=== PATIENT | male | born 1990 | race Caucasian/White ===

== ENCOUNTER 2024-03-18 13:47 | Emergency (ER) | payer SELFPAY ==
[2024-03-18 13:53] VITALS: BP 142/74; PULSE 69; RESP 20; TEMP 36.9; O2SAT 99
--- NOTE | 2024-03-18 14:28 | ED.URI ---
HPI - URI/Sore Throat General Chief Complaint: Upper Respiratory Infection Stated Complaint: Congestion/Diarrhea Time Seen by Provider: 03/18/24 14:29 Source: patient, RN notes reviewed and old records reviewed Mode of arrival: ambulatory Limitations: no limitations History of Present Illness HPI Narrative: 33-year-old male presents to Express Care with complaints of nausea vomiting and diarrhea which started yesterday. Patient states that had to leave work early yesterday due to illness. Patient reports that his congestion and sore throat just started today.Patient reports that he needs work note because he had to miss work due to illness. Patient denies any abdominal pain, no fevers chills or sweats. MD elicited complaint: sore throat, rhinorrhea, nasal congestion and other (nausea vomiting and diarrhea.) Onset (ago): day(s) (2) Severity: moderate Able to tolerate fluids by mouth: Yes Treatments prior to arrival: none Related Data Allergies Allergy/AdvReac Type Severity Reaction Status Date / Time No Known Allergies Allergy Verified 03/18/24 14:04 Review of Systems Review of Systems: CONSTITUTIONAL: Denies malaise, chills, sweats, or fever. EYES: Denies visual changes, redness, or discharge. ENT: Reports rhinorrhea, congestion, sinus pain, no otalgia and positive for sore throat. CARDIOVASCULAR: Denies chest pain, palpitations, or edema. RESPIRATORY: Reports cough.? Denies dyspnea. GASTROINTESTINAL: Denies abdominal pain,positive nausea, vomiting, diarrhea SKIN: Denies rash or itching. MUSCULOSKELETAL: Denies myalgia. NEUROLOGIC: Denies headache. All systems reviewed & are unremarkable except as noted in HPI and below PMFSH Surgical History Surgical History (Updated 03/20/24 @ 10:40 by Negar Nichole NP) H/O left inguinal hernia repair Social History Social History (Updated 03/20/24 @ 10:40 by Negar Nichole NP) Smoking status: Current every day smoker Tobacco type: e-cigarettes/vaping Alcohol intake: unknown Substance use: current Substance use type: marijuana Gender identity (if verbalized by the patient): Male Comments At time of signature, agree with nursing past medical, surgical, social and family history. There is no relevant family history pertinent to the presenting complaint Exam Narrative: GENERAL: Well-appearing, well-nourished, and in no acute distress. HEAD: Normocephalic EYES: PERRLA, conjunctivae clear ENT: Nares clear, turbinates edematous and erythematous, clear discharge. Mucous membranes moist. TM pearly parsons with dull light reflex bilaterally; no tragal tenderness. Oropharynx erythematous without lesions. Tonsils red enlarged and without exudate, no drooling, no hoarseness, no trismus, uvula midline.post nasal drainage noted NECK: Supple. No lymphadenopathy CHEST: Clear to auscultation, breath sounds equal. No wheezing, rhonchi, rales, or stridor. No respiratory distress, speaks in full sentences.no cough noted SAO2 99% on room air HEART: Regular rate and rhythm. No murmur heard. SKIN: Warm, dry, no rash. NEURO: Alert and oriented x3. PSYCH: Normal mood and affect Course Course Emergency Course: Patient is aware of diagnosis, understands and agrees to treatment plan.? Anticipatory guidance given.? Patient agrees to follow-up as directed and is aware of reasons to seek care at the emergency department. Portions of this record may have been created with voice recognition software Level of Care: Express Care Visit Vital Signs Vital signs: Vital Signs Temperature 36.9 C 03/18/24 13:53 Pulse Rate 69 03/18/24 13:53 Respiratory Rate 03/18/24 13:53 Blood Pressure 142/74 H 03/18/24 13:53 Pulse Oximetry 99 03/18/24 13:53 Oxygen Delivery Room Air 03/18/24 13:53 Temperature 36.9 C 03/18/24 13:53 Pulse Rate 69 03/18/24 13:53 Respiratory Rate 03/18/24 13:53 Blood Pressure 142/74 H 03/18/24 1
[2024-03-18 14:36] LABS: EDSTREPNEGPOS1 Presumptive Negative
== END 2024-03-18 15:00 | disposition home or self-care (01) ==
PROVIDERS: Emergency Provider Registered Nurse
DX: K52.9 Noninfective gastroenteritis and colitis, unspecified (principal); J02.9 Acute pharyngitis, unspecified; F17.290 Nicotine dependence, other tobacco product, uncomplicated
CPT/HCPCS: 87081; 87880; 99213; G0463

== ENCOUNTER 2024-06-07 19:18 | Emergency (ER) | payer SELFPAY ==
[2024-06-07 19:24] VITALS: BP 135/73; PULSE 61; RESP 16; TEMP 36.7; O2SAT 100
--- NOTE | 2024-06-07 19:44 | ED.BACK ---
HPI - Back Pain/Injury General Chief Complaint: Back Pain/Injury Stated Complaint: Lower back pain Time Seen by Provider: 06/07/24 19:44 Source: patient Mode of arrival: ambulatory Limitations: no limitations History of Present Illness HPI Narrative: 35-year-old male here for a work note. Patient had back injury approximately One week ago. Was seen at ER and had x-ray completed. Was prescribed prednisone and Flexeril but reports he has not picked up medications. States that he does not have the money to pay for them at this time. Has been taking Epson salt baths. Not taking any [id number] pain relief such as Tylenol or ibuprofen. Is unsure if he has any ibuprofen at home to take. Patient states back is sore today and would like a work note to be off tomorrow and Tuesday. patient ambulatory with steady gait, hunched over. No radiation of pain to lower extremities. No loss of bowel or bladder. All systems reviewed and negative except as noted above. Related Data Allergies Allergy/AdvReac Type Severity Reaction Status Date / Time No Known Allergies Allergy Verified 03/18/24 14:04 Review of Systems Review of Systems: CONSTITUTIONAL: Denies fever, chills, or sweats. EYES: Denies visual changes, redness, or discharge. ENT: Denies rhinorrhea, congestion, sore throat, or otalgia. CARDIOVASCULAR: Denies chest pain, palpitations, or edema. RESPIRATORY: Denies cough or dyspnea. GASTROINTESTINAL: Denies abdominal pain, nausea, vomiting, or diarrhea. GENITOURINARY: Denies dysuria or hematuria. SKIN: Denies rash or itching. MUSCULOSKELETAL: Reports right-sided low back pain. NEUROLOGIC: Denies headache, numbness, or weakness. PSYCHIATRIC: Denies anxiety or depression. All other systems reviewed are negative, except as documented in HPI. [facility] Surgical History Surgical History (Updated 03/20/24 @ 10:40 by Negar Nichole NP) H/O left inguinal hernia repair Social History Social History (Updated 03/20/24 @ 10:40 by Negar Nichole NP) Smoking status: Current every day smoker Tobacco type: e-cigarettes/vaping Alcohol intake: unknown Substance use: current Substance use type: marijuana Gender identity (if verbalized by the patient): Male Comments At time of signature, agree with nursing past medical, surgical, social and family history. There is no relevant family history pertinent to the presenting complaint. Exam Narrative: GENERAL: This is a well-nourished, well-developed patient, in no apparent distress. HEAD: normocephalic, atraumatic. EYES: PERRL. Sclera clear/white. Vision is grossly intact. EARS: External ears normal NOSE: External nose normal NECK: Neck supple, non-tender without lymphadenopathy, masses or thyromegaly. CARDIOVASCULAR: Regular rate and rhythm without murmurs, gallops, or rubs. RESPIRATORY: Clear to auscultation. Breath sounds equal bilaterally. No wheezes, rales, or rhonchi. SKIN: warm, Dry, intact with no suspicious lesions or rash, good texture and turgor. NEURO: awake, alert, and oriented to person, place and time. There were no obvious focal neurologic abnormalities. EXTREMITIES: No joint tenderness, effusion, or edema noted. BACK: Right-sided lumbar muscular tenderness. No midline tenderness. no deformity. Ambulatory with steady gait. Course Course Level of Care: Express Care Visit Vital Signs Vital signs: Vital Signs Temperature 36.7 C 06/07/24 19:24 Pulse Rate 61 06/07/24 19:24 Respiratory Rate 16 06/07/24 19:24 Blood Pressure 135/73 06/07/24 19:24 Pulse Oximetry 100 06/07/24 19:24 Oxygen Delivery Room Air 06/07/24 19:24 Temperature 36.7 C 06/07/24 19:24 Pulse Rate 61 06/07/24 19:24 Respiratory Rate 16 06/07/24 19:24 Blood Pressure 135/73 06/07/24 19:24 Pulse Oximetry 100 06/07/24 19:24 Oxygen Delivery Room Air 06/07/24 19:24 reviewed MDM - Back Pain/Injury MDM Narrative
== END 2024-06-07 19:59 | disposition home or self-care (01) ==
PROVIDERS: Emergency Provider Nurse Practitioner Family
DX: S39.012A Strain of muscle, fascia and tendon of lower back, initial encounter (principal); X58.XXXA Exposure to other specified factors, initial encounter; F17.290 Nicotine dependence, other tobacco product, uncomplicated
CPT/HCPCS: 99213; G0463

== ENCOUNTER 2024-10-21 16:04 | Emergency (ER) | payer SELFPAY ==
--- OUTSIDE RECORDS SUMMARY | 2024-10-21 16:06 | XMS_ITS | Clinical Summary ---
Author Organization [facility] Address [address] [place] [address] Phone Care Team Providers Care Education Analyst Name Role Phone Provider, None Primary Care Provider Donnie Rosa MD Unavailable [phone] Allergies No known active allergies Medications HYDROcodone-acet aminophen (NORCO) 5-325 MG TabletIndication s:Bilateral inguinal hernia without obstruction or gangrene Take 1-2 Tablets by mouth every 8 hours as needed for Moderate or more severe pain. 12 Tablet 4 Active naproxen (NAPROSYN) 500 MG TabletIndication s:Pain Take 1 Tablet by mouth 2 times daily as needed for Mild or more severe pain. Indications: Pain 20 Tablet 4 Active Active Problems No known active problems Family History Medical History Relation Name Comments Diabetes Father No Known Problems Half-Brother 1 No Known Problems Half-Brother 2 No Known Problems Half-Sister 1 No Known Problems Half-Sister 2 Cancer Maternal Grandmother Anemia Mother Relation Name Status Comments Father Half-Brother 1 Alive Half-Brother 2 Alive Half-Sister 1 Alive Half-Sister 2 Alive Maternal Grandmother Mother Alive Social History Tobacco Use Types Packs/Day Years Used Date Smoking Tobacco: Former Cigarettes 0.5 5 1 09/26/2017 - 07/27/2023 Smokeless Tobacco: Never Tobacco Cessation:Counseling Given: No Comments:Vape Alcohol Use Standard Drinks/Week Comments Yes 14 (1 standard drink = 0.6 oz pu re alcohol) Sexually Active Control Partners Comments Not Currently Sex and Gender Information Value Date Recorded Sex Assigned at Not on file Legal Sex Male 8:50 PM CDT Gender Identity Not on file Sexual Orientation Not on file Last Filed Vital Signs Vital Sign Reading Time Taken Comments Blood Pressure 157/75 06/07/2024 3:27 PM CDT Pulse 76 06/07/2024 3:27 PM CDT Temperature 36.1 C (97 F) 06/07/2024 3:27 PM CDT Respiratory Rate 16 06/07/2024 3:27 PM CDT Oxygen Saturation 99% 06/07/2024 3:27 PM CDT Inhaled Oxygen Concentration - - Weight 104.3 kg (230 lb) 06/07/2024 3:27 PM CDT Height 185.4 cm (6' 1 ) 06/07/2024 3:27 PM CDT Body Mass Index 30.34 06/07/2024 3:27 PM CDT Plan of Treatment Health Maintenance Due Date Last Done Comments Hepatitis C Virus (HCV) Screening 1990 Influenza Immunization (#1) 2024 08/23/2003 SARS-COV-2 Immunization ( season) 2024 Respiratory Syncytial Virus (RSV) Immunization (Adult) (1 - 1-dose 75+ series) 2065 Hepatitis B Immunization Completed 997, 06/25/1996, 02/22/1996 DTaP/Tdap/Td Immunization Discontinued 2005, 05/22/2004, 12/03/1994, Additional history exists TdaP Immunization Completed 06/08/2006 Meningococcal Immunization (ACWY) Completed 12/02/2008 Pneumococcal Immunization Combined Aged Out No longer eligible based on patient's age to complete this topic Rotavirus Immunization Aged Out No lo nger eligible based on patient's age to complete this topic Medical Devices Implanted Type Area Assistant Designer Device Identifier Shelf Expiration Date Model / Serial / Lot Mesh Left Large 3dmax Light - [id number] Implanted:Qty : 1 on 09/13/2023 by Donnie Britt MD at [facility] IMPLANT Left: Inguinal [employer] 12/08/2027 [id number] / [id number] / [id number] Care Teams Education Analyst Relationship Specialty Start Date End Date Provider, None [place] PCP - General 05/23/21 Donnie Britt MD [address] [id number] Consulting Physician General Surgery 08/09/23
[2024-10-21 16:08] VITALS: BP 130/77; PULSE 69; RESP 16; TEMP 36.7; O2SAT 99
--- NOTE | 2024-10-21 16:22 | ED_ITS ---
HPI - URI/Sore Throat General Chief Complaint: Nausea/Vomiting/Diarrhea Stated Complaint: nausea/diarrhea/congestion Time Seen by Provider: 10/21/24 16:23 Source: patient, RN notes reviewed and old records reviewed Mode of arrival: ambulatory Limitations: no limitations History of Present Illness HPI Narrative: patient presents with less than 24 hours of nausea, diarrhea and nasal congestion. He does report 1 episode of vomiting yesterday. Has been able to eat without further episodes of vomiting today. He says the feels much better today than he did yesterday, but would like to take a day off work tomorrow just to be sure. He denies any fever, chills, sweats. He is not in any distress. Related Data Allergies Allergy/AdvReac Type Severity Reaction Status Date / Time No Known Allergies Allergy Verified 10/21/24 16:15 Review of Systems Review of Systems: All systems reviewed & are unremarkable except as noted in HPI and below Constitutional: Constitutional: Reports no additional constitutional complain ts ENT: Reports system reviewed and no additional complaints, except as documented, Reports nasal congestion and Reports nasal discharge Cardiovascular: Cardiovascular: Reports no additional cardiovascular complaints Respiratory: Respiratory: Reports no additional respiratory complaints Gastrointestinal: Gastrointestinal: Reports no additional gastrointestinal complaints, Reports diarrhea, Reports nausea and Reports vomiting ( One episode yesterday) [facility] Surgical History Surgical History H/O left inguinal hernia repair Social History Social History Smoking status: Current every day smoker Tobacco type: e-cigarettes/vaping Alcohol intake: unknown Substance use: current Substance use type: marijuana Gender identity (if verbalized by the patient): Male Comments At the time of my signature, I reviewed and agree with the nursing past medical, surgical, social, and family history. There is no relevant family history pertinent to the patient complaint. Exam Const: General: cooperative, no acute distress, alert and awake Orientation/consciousness: oriented to person, oriented to place and oriented to time HENMT: Head: normal to inspection Mouth: Yes moist mucous membranes Resp: Effort & Inspection: normal respiratory effort and able to speak in complete sentences Auscultation: clear to auscultation bilaterally, no crackles, no rales, no rhonchi and no wheezes Cardio: Palpation: normal PMI Rate: regular rate Rhythm: regular rhythm Heart sounds: S1 normal heart sound present and S2 normal heart sound present GI: GI Palp: Yes Soft to palpation, No Tenderness to palpation present (GI) and No Guarding due to palpation present (GI) Auscultation: normal bowel sounds Neuro: General: oriented to person, oriented to place and oriented to time Cranial nerves: Yes CN's II-XII intact bilaterally Psych: Appearance: grossly normal Thought process: Normal thought process present Insight: Good insight present (Psych) Judgement: Good judgement present (Psych) Course Course Level of Care: Express Care Visit Vital Signs Vital signs: Vital Signs Temperature 98.0 F 10/21/24 16:08 Pulse Rate 69 10/21/24 16:08 Respiratory Rate 16 10/21/24 16:08 Blood Pressure 130/77 10/21/24 16:08 Pulse Oximetry 99 10/21/24 16:08 Oxygen Delivery Room Air 10/21/24 16:08 Temperature 98.0 F 10/21/24 16:08 Pulse Rate 69 10/21/24 16:08 Respiratory Rate 16 10/21/24 16:08 Blood Pressure 130/77 10/21/24 16:08 Pulse Oximetry 99 10/21/24 16:08 Oxygen Delivery Room Air 10/21/24 16:08 Reviewed MDM - URI/Sore Throat MDM Narrative Medical decision making narrative: reassuring physical exam. Patient nontoxic appearing, stable for discharge home with supportive care measures. Work note provided. Discharge instructions reviewed with patient, as well as provided in writing per nursing staff. The instructions also include specific and strict return/GO TO THE ER as well as f/u information. All questions have been answered, and the patient deny any further questions with discharge and discharge plan. Some parts of this dictation were generated by voice recognition software and may contain typographical and/or grammatical inaccuracies. Differential Diagnosis Differential diagnosis: Likely upper respiratory infection, otitis media, viral infection and influenza Medical Records Attestation: I reviewed the patient's medical records. Lab Data Attestation: I reviewed the patient's lab results. Discharge Plan Discharge Clinical Impression: Nausea Patient Disposition: Home, Self-Care Condition: Stable Instructions: Antibiotic Form, Acute Nausea and Vomiting (ED) Additional Instructions: take medications as prescribed. Follow with primary care provider. Emergency department for new or worse symptoms Patient Language: Armenian Prescriptions: New ondansetron 4 mg tablet,disintegrating 4 mg PO Q6H PRN (Reason: nausea and vomiting) Qty: 10 0RF Follow-up/Referrals: PHYSICIAN,MANAGER WORKERS COMPENSATION [Primary Care Provider] - Stand Alone Forms: Work/School Release IP Time of Disposition: 16:36
[2024-10-21 16:33] LABS: EDCOVIDSCREEN Negative (Negative); EDINFLUASCREEN Negative (Negative); EDINFLUBSCREEN Negative (Negative)
== END 2024-10-21 16:40 | disposition home or self-care (01) ==
PROVIDERS: Emergency Provider Nurse Practitioner Family
DX: R11.0 Nausea (principal); Z20.822 Contact with and (suspected) exposure to COVID-19; F17.290 Nicotine dependence, other tobacco product, uncomplicated; F12.90 Cannabis use, unspecified, uncomplicated
CPT/HCPCS: 87426; 87804; 99213; G0463